=== PATIENT | male | born 1950 | race Caucasian/White ===

== ENCOUNTER 2021-08-29 02:16 | Outpatient (CLI) | payer OTHER, SELFPAY ==
[2021-08-29 10:58] LABS: Source Nasal/Nares
[2021-08-29 15:09] LABS: COVID-19 PCR Negative (Negative)
== END 2021-08-29 02:17 | disposition home or self-care (01) ==
LOC: LBO 02:16
PROVIDERS: Visit Provider Student in an Organized Health Care Education/Training Program
DX: Z20.822 Contact with and (suspected) exposure to COVID-19 (principal); Z01.818 Encounter for other preprocedural examination
CPT/HCPCS: 87635

== ENCOUNTER 2021-08-31 06:20 | Day surgery (SDC) | payer OTHER, SELFPAY ==
[2021-08-31 06:41] VITALS: BP 122/77; PULSE 58; RESP 18; TEMP 36.6; O2SAT 98
--- NOTE | 2021-08-31 07:23 | PDOC.DSDIS_ITS ---
Discharge Plan Disposition Patient Disposition: HOME Discharge Details Attending Provider: Paul Travis Primary Care Provider: [facility] Home Meds and New Rx's Prescriptions: New acetaminophen 500 mg tablet 1,000 mg PO Q8H PRN (Reason: pain) Qty: 60 3RF ibuprofen 600 mg tablet 600 mg PO TID PRN (Reason: pain) Qty: 30 3RF Continued warfarin 5 mg tablet 5 mg PO DAILY 0RF Discharge Instructions Additional Instructions: You may use Ibuprofen for pain relief in the first few days but regular use shou ld be avoided with Coumadin. Stand Alone Forms: Thaddeus Castillo Finger Release Activity:: Elevate Remove Dressings/Wound Care:: 48 hours Shower/Bathe:: 48 hours Diet:: As Tolerated Discharge Orders Discharge Orders: Discharge Order (Routine); Ordered 08/31/21 Ordered By: Paul Travis DS: Diagnosis Discharge Diagnosis (1) Trigger ring finger of right hand: Status: Acute (2) Trigger ring finger of left hand: Status: Acute
[2021-08-31 07:27] LABS: INR 1.2 (0.9-1.1); Prothrombin Time 11.6 sec (9.3-11.0)
[2021-08-31] MEDS: Sodium Bicarbonate 50 MEQ/50 ML VIAL (07:41)
--- NOTE | 2021-08-31 22:22 | ROE_ITS ---
Date of service: 08/31/21 Time of Service: 07:50 Operative Note Operative Note DATE OF PROCEDURE: 08/31/21 PRE-OP DIAGNOSIS: Bilateral Ring Finger Trigger Fingers POST-OP DIAGNOSIS: same PROCEDURE: Trigger Finger Release - Bilateral Ring Finger SURGEON: Paul Travis Refer to Anesthesia Record ESTIMATED BLOOD LOSS: 5 PATHOLOGY: none sent COMPLICATIONS: None Patient was transported to: same day Patient's condition: stable Indications: I have seen Jordy in clinic for symptoms of a trigger finger of both ring fingers. The catching, clicking, locking, and pain limited function. The diagnosis of trigger finger was evident. The symptoms had not responded to conservative measures. I discussed trigger finger release with the patient. I reviewed the risks of the procedure to include, but not limited to, bleeding, infection, pain, stiffness, incomplete release, damage to nerves or vessels, continued catching, recurrence. Despite these risks, the patient elected to proceed. Findings: There was a tightened A1 rica which was released. The flexor tendons were inspected and the patient was able to move the finger without any catching, clicking, or locking. This was performed on both ring fingers. Procedure Description: Jordy was greeted in the preoperative holding area where the correct side was identified and marked. The consent was reviewed with the patient and signed. All questions were answered. He was taken back to the operating room. The patient was placed into the supine position on the operating room table with the left arm on an arm board. All bony prominences were well padded. No prophylactic antibiotics were administered since this was a clean, elective hand surgical case. The left arm was then prepped with Chloraprep and draped in a standard fashion with stockinette and extremity drape. A timeout to confirm correct identity, side and site, procedure, allergies, anesthesia, and medical concerns was performed. The surgical site was marked as a longitudinal incision directly over the A1 rica of the ring finger. This was confirmed with palpation during finger flexion. This area, overlying the metacarpal head, was then anesthetized with 1% Lidocaine. The patient tolerated this well and once the anesthetic had se tup, the procedure began. A longitudinal incision was made through skin only, approximately 1cm. The deep tissues were dissected bluntly. Once the A1 rica and flexor tendons were identified the soft tissue including neurovascular structures were retracted medially and laterally. There were no crossing structures over the A1 rica. The proximal edge of the rica was identified and the rica was incised with tenotomy scissors. There was a release of the tendons once this was fully released. The tendons were then removed from the wound and inspected. Excess synovium was resected. The tendons were then returned and the patient was asked to move the finger into deep flexion and back to extension. There was no recreation of the pre-operative symptoms. The hand was then once more inspected for any A0 rica or area of possible constriction. The wound was then irrigated and the skin was closed with a 4-0 Nylon. This was dressed with gauze and a Conform dressing. While keeping the back table sterile, the patient was turned with the stretcher and the right arm was placed onto a hand table. The right arm was prepped and draped in a standard fashion with stockinette and extremity drape. The surgical site was marked as a longitudinal incision directly over the A1 rica of the ring finger. This was confirmed with palpation during finger flexion. This area, overlying the metacarpal head, was then anesthetized with 1% Lidocaine. The patient tolerated this well and once the anesthetic had setup, the procedure began. A longitudinal incision was made through skin only, approximately 1cm. The deep tissues were dissected bluntly. Once the A1 rica and flexor tendons were identified the soft tissue including neurovascular structures were retracted medially and laterally. There were no crossing structures over the A1 rica. The proximal edge of the rica was identified and the rica was incised with tenotomy scissors. There was a release of the tendons once this was fully released. The tendons were then removed from the wound and inspected. Excess synovium was resected. The tendons were then returned and the patient was asked to move the finger into deep flexion and back to extension. There was no recreation of the pre-operative symptoms. The hand was then once more inspected for any A0 rica or area of possible constriction. The wound was then irrigated and the skin was closed with a 4-0 Nylon. This was dressed with gauze and a Conform dressing. The patient tolerated the procedure well and was returned to the Same Day Surgery area in a stable condition suffering no known complication.
== END 2021-08-31 08:20 | disposition home or self-care (01) ==
PROVIDERS: Visit Provider Student in an Organized Health Care Education/Training Program
PROC: (CPT 26055; principal; 2021-08-31 07:30)
DX: M65.341 Trigger finger, right ring finger (principal); M65.342 Trigger finger, left ring finger; Z79.01 Long term (current) use of anticoagulants
CPT/HCPCS: 26055; 36415; 85610

== ENCOUNTER 2022-01-03 11:30 | Outpatient (CLI) | payer OTHER, SELFPAY ==
--- NOTE | 2022-01-03 08:15 | DI.RAD_ITS ---
Exam(s) XR SHOULDER RT COMPLETE 2+V EXAM: XR SHOULDER RT COMPLETE 2+V CLINICAL HISTORY: RIGHT SHOULDER PAIN. TECHNIQUE: 2D digital imaging was performed of the right shoulder. Two images were obtained. AP an d axillary views were obtained. COMPARISON: No exams were available for comparison FINDINGS: BONES: No acute fracture is present. No bony destructive lesion is seen. JOINTS: No dislocation present. Moderate degenerative changes are seen at the glenohumeral joint with joint space narrowing, subchondral sclerosis and periarticular spurring. Moderate degenerative armstrong ges are seen at the acromioclavicular joint. SOFT TISSUE: Normal. IMPRESSION: Degenerative changes of the right shoulder. DATA REPOSITORY: RADIATION DOSE DELIVERED:
== END 2022-01-03 11:31 | disposition home or self-care (01) ==
LOC: DIORS 11:31
PROVIDERS: Visit Provider Student in an Organized Health Care Education/Training Program
DX: M19.011 Primary osteoarthritis, right shoulder (principal)
CPT/HCPCS: 73030

== ENCOUNTER → 2022-01-23 00:14 | Outpatient (CLI) | payer OTHER, SELFPAY ==
--- NOTE | 2022-01-23 07:45 | DI.RAD_ITS ---
Exam(s) XR CHEST 2V PA LATERAL EXAM: XR CHEST 2V PA LATERAL CLINICAL HISTORY: preop,oa rt shoulder, m19.011 TECHNIQUE: 2D digital imaging was performed. COMPARISON: No exams were available for comparison FINDINGS: MEDIASTINUM: Normal. HEART: Normal. PULMONARY VASCULATURE: Normal. LUNGS: Clear. PLEURAL SPACE: No pleural effusion or pneumothorax. BONE:Degenerative changes IMPRESSION: No acute abnormality. DATA REPOSITORY: RADIATION DOSE DELIVERED:
== END ==
PROVIDERS: Visit Provider Student in an Organized Health Care Education/Training Program
DX: M19.011 Primary osteoarthritis, right shoulder (principal); Z01.818 Encounter for other preprocedural examination
CPT/HCPCS: 71046

== ENCOUNTER 2022-01-23 02:30 | Outpatient (CLI) | payer OTHER, SELFPAY ==
[2022-01-23 14:34] LABS: HCT 40.6 % (40.0-50.0); HGB 13.9 g/dL (13.5-17.5); MCH 30.2 pg (27.0-33.0); MCHC 34.2 % (32.0-36.0); MCV 88 fL (80-95); MPV 10.4 fL (8.0-11.0); Platelet Count 170 10^3/uL (130-400); RBC 4.61 10^6/uL (4.36-5.78); RDW 12.9 % (11.8-14.1); WBC 5.59 10^3/uL (4.4-10.8)
[2022-01-23 15:04] LABS: INR 3.7 (0.9-1.1); PTT Activated 41.1 sec (21.0-27.5); Prothrombin Time 34.4 sec (9.3-11.0)
[2022-01-23 16:03] LABS: Anion Gap 7.9 mmol/L (3-11); BUN 21 mg/dL (7-18); CO2 28.1 mmol/L (21.0-32.0); CREATININE 0.8 mg/dL (0.70-1.30); Calcium 8.6 mg/dL (8.5-10.1); Chloride 104 mmol/L (98-107); Glucose 93 mg/dL (74-106); Sodium 140 mmol/L (136-145)
== END 2022-01-23 02:31 | disposition home or self-care (01) ==
LOC: LBO 02:30
PROVIDERS: Visit Provider Student in an Organized Health Care Education/Training Program
DX: I82.402 Acute embolism and thrombosis of unspecified deep veins of left lower extremity; M19.011 Primary osteoarthritis, right shoulder; M25.511 Pain in right shoulder; Z79.01 Long term (current) use of anticoagulants; Z01.818 Encounter for other preprocedural examination; Z01.812 Encounter for preprocedural laboratory examination
CPT/HCPCS: 36415; 80048; 85027; 85610; 85730

== ENCOUNTER 2022-01-23 02:40 | Outpatient (CLI) | payer OTHER, SELFPAY ==
--- NOTE | 2022-01-23 14:00 | RT.EKG_ITS ---
APPROVED REPORT Exam: Resting ECG Reason for Exam: preop Patient Location: O HR:56 bpm ECG Measurements Heart Rate 56 AXIS MT 214 P 72 QRSd 95 QRS 21 QT 417 T 40 QTc 403 Conclusion Sinus rhythm...normal P axis, V-rate 50- 99 Borderline prolonged MT interval...MT >212, V-rate 50- 90
== END 2022-01-23 02:41 | disposition home or self-care (01) ==
LOC: RT 02:41
PROVIDERS: Visit Provider Student in an Organized Health Care Education/Training Program
DX: M19.011 Primary osteoarthritis, right shoulder; Z01.810 Encounter for preprocedural cardiovascular examination
CPT/HCPCS: 93005; 93010

== ENCOUNTER 2022-01-31 03:21 | Outpatient (CLI) | payer OTHER, SELFPAY ==
[2022-01-31 12:09] LABS: Source Nasal/Nares
[2022-01-31 16:22] LABS: COVID-19 PCR Negative (Negative)
== END 2022-01-31 03:22 | disposition home or self-care (01) ==
LOC: LBO 03:21
PROVIDERS: Visit Provider Student in an Organized Health Care Education/Training Program
DX: Z20.822 Contact with and (suspected) exposure to COVID-19 (principal); Z01.818 Encounter for other preprocedural examination
CPT/HCPCS: 87635

== ENCOUNTER 2022-02-02 05:59 | Day surgery (SDC) | payer OTHER, SELFPAY ==
[2022-02-02] VITALS (10 sets, daily range): BP systolic 109–126; BP diastolic 61–84; PULSE 50–62; RESP 14–22; TEMP 36.3–36.7; O2SAT 94–98; BMI 24.6
--- NOTE | 2022-02-02 06:09 | ANES.PREOP_ITS ---
General Info Date of Service Date Performed: 02/02/22 Height: 6 ft 1 in Weight: 84.822 kg Body Mass Index (BMI): 24.6 Surgical Procedure: Operation Date: 02/02/22 07:40 Proposed Procedure Side Surgeon p Reverse Shoulder Total Arthroplasty Right Grady Resendiz MD Meds Allergies and Home Medications Allergies Allergy/AdvReac Type Severity Reaction Status Date / Time No Known Allergies Allergy Verified 02/02/22 06:30 Home Medication Medication Instructions Recorded warfarin 5 mg tablet 5 mg PO DAILY 01/31/21 acetaminophen 500 mg tablet 1,000 mg PO Q8H PRN pain #60 tabs 08/31/21 naproxen 250 mg tablet 250 - 500 mg PO BID PRN #20 tabs 02/02/22 oxycodone 5 mg tablet 5 - 10 mg PO Q4H PRN moderate to 02/02/22 severe pain #18 tabs PFSH Active Problems Active Problems: Problem Status Onset Code Trigger ring finger of right hand M65.341 Trigger ring finger of left hand M65.342 Adjustment disorder with disturbance of conduct F43.24 Prediabetes R73.03 Osteoarthritis of right shoulder M19.011 Tendonitis of long head of biceps brachii of right shoulder M75.21 Medical History Medical History Colonic polyp Compartment syndrome of left lower extremity Deep vein thrombosis (DVT) of left lower extremity Surgical History Surgical History (Updated 02/02/22 @ 06:35 by Courtney Elliott RN) H/O fasciotomy History of back surgery back injections/nerve blocks Hx of colonoscopy Hx of knee surgery Tobacco Smoking/Tobacco Use Status: Former Tobacco Use Alcohol Alcohol Intake: current Alcohol intake frequency: 3 or more drinks per day Alcohol type: beer Substance Use Substance use: Daily Substance use type: marijuana Vital Signs and Lab Results Lab Results Blood Type / Crossmatch: No Data to Display Complete Blood Count: White Blood Count 5.59 10^3/uL (4.4-10.8) 01/23/22 14: Red Blood Count 4.61 10^6/uL (4.36-5.78) 01/23/22 14:27 Hemoglobin 13.9 g/dL (13.5-17.5) 01/23/22 14:27 Hematocrit 40.6 % (40.0-50.0) 01/23/22 14:27 Platelet Count 170 10^3/uL (130-400) 01/23/22 14:27 Complete Metabolic Panel: Sodium Level 140 mmol/L (136-145) 01/23/22 14:27 Potassium Level 4.0 mmol/L (3.5-5.1) 01/23/22 14:27 Chloride Level 104 mmol/L (98-107) 01/23/22 14:27 Carbon Dioxide Level 28.1 mmol/L (21.0-32.0) 01/23/22 14:27 Blood Urea Nitrogen 21 mg/dL (7-18) H 01/23/22 14:27 Creatinine 0.8 mg/dL (0.70-1.30) 01/23/22 14:27 Estimated GFR/1.73 m2 >= 60.00 (mL/min/1.73m2) 01/23/22 14:27 Calcium Level 8.6 mg/dL (8.5-10.1) 01/23/22 14:27 Glucose Level 93 mg/dL (74-106) 01/23/22 14:27 Liver Function Panel: No Data to Display Coagulation Panel: INR International Normalized Ratio 1.1 (0.9-1.1) 02/02/22 06:4 0 Prothrombin Time 10.8 sec (9.3-11.0) 02/02/22 06:40 Activated Partial Thromboplast Time 41.1 sec (21.0-27.5) H 01/23/22 14:27 Cardiac Panel: No Data to Display Arterial Blood Gas: No Data to Display Venous Blood Gas: No Data to Display Pancreas Panel: No Data to Display Thyroid Panel: No Data to Display Infectious Disease: Coronavirus (COVID-19)(PCR) Negative (Negative) 01/31/22 11:35 Coronavirus 2019 Source Nasal/Nares 01/31/22 11:35 Blood Cultures: No Data to Display Toxicology Panel: No Data to Display Imaging and Studies Imaging and Studies Study information below may be from another EMR and interpreted by another provider. Please see original notes in EMR for more complete details. EKG Summary: 01/23/22: sinus. Anesthesia Assessment and Plan Anesthesia History Personal History: No History of Anesthesia Complications Family History: No Family History of Anesthesia Complications Exercise Tolerance Exercise Tolerance: Metabolic Equivalents>4 Pertinent Negatives Pertinent Negatives: No Symptoms of GERD, No Major Cardiovascular Symptoms or Complaints, No Major Pulmonary Symptoms or Complaints and No History of CVA/TIA Cardiac & Pulmonary Exam Cardiac Exam: Normal S1/S2 Heart Sounds Pulmonary Exam: Clear Bilateral Breath Sounds Implantable Cardiac Device Does patient have a Pacemaker or an ICD?: No Airway Exam Known Difficult Airway: No Mallampati Class: 3 Mouth Opening: Normal (> 3cm) Thyromental Distance: Greater than 3 cm Neck Range of Motion: Full ROM Neck Circumference: Normal Teeth Condition: Normal Dentition and Generalized Poor Dentition ASA Classification ASA Score: ASA 3 Emergency Case?: No NPO Status NPO Status: NPO Clears >2 hours, Solids >8 hours Anesthesia Plan Resuscitation Status: Full Code Anesthesia Technique: General Anesthesia Airway Planned: Endotracheal Tube Pain Management: Surgeon and patient request nerve block Monitors Used: Standard Monitors and Arterial Line (+/-) Preoperative Comments:: 71 yo male for right reverse total shoulder Sig PMHx: DVT (warfarin, last dose 01/28/22, INR 1.1 today), HTN, daily Et [place]/cannabis, LE compartment syndrome with fasciotomy 2014, former smoker (quit 40 years ago) Plan: MELANIE brachial plexus block, +/- arterial line.
[2022-02-02 07:08] LABS: INR 1.1 (0.9-1.1); Prothrombin Time 10.8 sec (9.3-11.0)
[2022-02-02] MEDS: Lactated Ringers 1,000 ML 30 ML IV (07:09)
[2022-02-02] MEDS: ceFAZolin 2 GM/50 ML BAG IVPB (07:40)
--- NOTE | 2022-02-02 08:23 | W.ANESNERVE ---
Nerve Block Single Injection Procedure Date and Time Date Performed: 02/02/22 Procedure Start: 07:15 Location Where Procedure Performed Procedure Location: Day Surgery Unit Reason Performed: Postoperative Analgesia Requesting Provider: Grady Resendiz Timeout Performed Timeout Performed: Yes Monitoring Used ECG, Blood Pressure, SpO2 and See EMR for corresponding vital signs Sterility Sterility: Hand Hygiene, Surgical Cap, Surgical Mask, Sterile Gloves and Chlorhexidine Sedation Given During Procedure Sedation Given (Indicate Dose Given): Versed IV Dose:: 2mg Patient Mental Status Patient Mental Status: Sedate with meaningful communication Nerve Block 1st Nerve Block: Laterality: Right Block Type: Interscalene Needle / Catheter Used: 100mm SonoPlex II Local Anesthetic Bolus (Indicate Dose Given): Lidocaine used for local infiltration of skin, Bupivacaine 0.5% Dose:: 15 mL and Exparel Dose:: 10 mL Additives (Indicate Dose Given): None Ultrasound: Sterile probe cover and gel used Ultrasound Image Saved?: Yes Nerve Stimulator: Not Used Paresthesia: None Procedure Tolerated: No Complications Procedure Outcome: Successful Performed By: Ronel Ahumada Supervised By: Thad Del Cid
[2022-02-02] MEDS: Bupivacaine 0.25% Pres-Free 30 ML VIAL (08:35)
--- NOTE | 2022-02-02 11:41 | DI.RAD_ITS ---
Exam(s) XR SHOULDER RT COMPLETE 2+V EXAM: XR SHOULDER RT COMPLETE 2+V CLINICAL HISTORY: Portable in PACU postop. TECHNIQUE: 2D digital imaging was performed. Two images were obtained. AP views were obtained. COMPARISON: CR XR SHOULDER RT COMPLETE 2+V from 01/03/2022 FINDINGS: BONES: The patient is now status post right total reverse shoulder replacement. The orthopedic hardw are is in good position. The bones are intact. JOINTS: Degenerative changes are seen at the acromioclavicular joint. SOFT TISSUE: Postsurgical changes are seen in the soft tissues. IMPRESSION: Status post right shoulder replacement. DATA REPOSITORY: RADIATION DOSE DELIVERED:
--- NOTE | 2022-02-02 12:08 | W.ANESPOSTOP ---
Postoperative Evaluation Date, Time and Location Date Performed: 02/02/22 Time Performed: 12:09 Patient Location: Day Surgery Unit Vital Signs Most Recent Imported Vital Signs: Most Recent Vital Signs Temp Pulse Resp BP Pulse Ox 36.3 C L 53 L 16 118/84 95 02/02/22 11:57 02/02/22 11:57 02/02/22 11:57 02/02/22 11:57 02/02/22 11:57 Pain Score Most Recent Pain Score: Most Recent Pain Score Pain Level 0 02/02/22 11:57 Assessment Mental Status: Awake (Alert & Oriented to Patient Baseline) Airway and Respiratory Function: Patent airway with normal (patient baseline) respiratory exam Cardiovascular Function: Hemodynamically Stable Hydration Status: Adequately Hydrated Nausea & Vomiting: No Nausea or Vomiting Pain: Pain is tolerable per patient Peripheral Nerve Block: Regional nerve block not resolved at time of post operative discharge
[2022-02-02] MEDS: ceFAZolin 1 GM/50 ML BAG IVPB (13:13)
--- NOTE | 2022-02-02 13:55 | W.PM.DSUDISC ---
Discharge Plan Disposition Patient Disposition: HOME Condition: Stable Discharge Details Reason For Visit: Right shoulder surgery Attending Provider: Grady Reesndiz Primary Care Provider: [facility],[place] Home Meds and New Rx's Prescriptions: New naproxen 250 mg tablet 250 - 500 mg PO BID PRNQty: 20 0RF Rx Instructions: take with a meal oxycodone 5 mg tablet 5 - 10 mg PO Q4H MDD 30 mg PRN (Reason: moderate to severe pain) Qty: 18 0RF Continued warfarin 5 mg tablet 5 mg PO DAILY acetaminophen 500 mg tablet 1,000 mg PO Q8H PRN (Reason: pain) Qty: 60 3RF Discharge Instructions Additional Instructions: Surgery: Right reverse total shoulder arthroplasty with biceps tenodesis Activity: Do not lift anything heavier than a coffee. You should keep your arm at your side in a neutral position at all times except for gentle range of motion exercises, physical therapy, and essential activities. You should use the sling whenever you are out of the house. You may have to adjust the abduction pillow or remove it for comfort. At home it is best to remove the sling and rest the arm on a pillow at your side or support the operative side with your other hand. A physical therapy prescription will be sent electronically to start in 2-3 weeks. Reverse TSA Protocol: Postoperative Weeks 0-6 ?Immobilization: Sling may be removed for therapeutic exercises, resting in bed or chair, and bathing ?Motion exercises: Pendulum exercises, elbow range- of-motion exercises, wrist [id number] exercises, and alarm installation technician strengthening ?Restrictions: No active internal rotation or backwards extension Postoperative Weeks 6-12 ?Immobilization: Sling discontinued ?Motion exercises: Shoulder passive range of motion, advancing to active-assisted range of motion, and finally active range of motion with a goal of forward flexion to 90? and external rotation of 20? ?Strengthening exercises: Light, resisted forward flexion, external rotation, and abduction limited to isometric exercises and therapy bands with concentric motions only. Continue alarm installation technician strengthening ?Restrictions: No resisted internal rotation or backwards extension. No scapular retraction exercises with therapy bands Postoperative Months 3-12 ?Motion exercises: Increase [id number] exercises to achieve full motion, with passive stretching at end ranges ?Strengthening: Begin resisted, internal rotation and backwards extension initially with isometric exercises advancing to light therapy bands and then weights. Advance other shoulder strengthening exercises to include the rotator cuff, deltoid, and scapular stabilizers. Advance to functional strengthening, including plyometric exercises and core strengthening. Prescriptions: Resume home warfarin dose tomorrow morning Naproxen 250 mg take 1-2 every 12 hours with a meal as needed for moderate pain and swelling: Okay to use while resuming warfarin over the next few days and carefully over the next couple weeks Oxycodone 5 mg take 1-2 every 4-6 hours as needed for severe pain You may use [id number] Tylenol (acetaminophen) as needed for mild to moderate pain. These pain medications may be taken all at once or in different combinations as needed. Also, recommend Colace (docusate) as a stool softener as surgery and pain medicine cause constipation. You may try [id number] diphenhydramine (Benadryl) 25-50 mg nightly as a sleep aid Dressings: Leave dressing in place until follow-up. Keep clean and dry at all times. No showers please. Follow-up: 10-[address] Resendiz Please call the office during business hours with any questions or concerns. Let us know right away if you develop any redness, drainage, fevers, chest pain, or trouble breathing. Do not drink alcohol or drive for at least 24 hours after anesthesia. Stand Alone Forms: Anesthesia Discharge Inst., Elvia.Nerve Block Instructions, Sudhir Saavedra ([facility]) Discharge Orders Discharge Orders: Discharge Order (Routine); Ordered 02/02/22 Ordered By: Grady Resendiz
--- NOTE | 2022-02-02 14:05 | ROE_ITS ---
Operative Note Operative Note DATE OF PROCEDURE: 02/02/22 PRE-OP DIAGNOSIS: Right: 1. End-stage glenohumeral arthritis 2. Long head of the biceps tendinopathy POST-OP DIAGNOSIS: same PROCEDURE: Right: 1. Reverse total shoulder arthroplasty, CPT # 54299 2. Open biceps tenodesis, CPT # 08992 The environmental emergencies assistant was medically required as this procedure involves retraction, protection of neurovascular structures, and manipulation of multiple instruments and implants at the same time, which cannot be done without a skilled environmental emergencies assistant. SURGEON: Grady Resendiz BATTERY CHARGER: Corrie Beard ANESTHESIA TYPE: Local By Surgeon, General LMA/ETT and Primary Nerve Block Refer to Anesthesia Record ESTIMATED BLOOD LOSS: 75 COMPLICATIONS: None Patient was transported to: PACU Patient's condition: stable Implants: [employer] modular glenoid system baseplate 24 mm, 10 degree full augment [employer] modular glenoid system central post 25 mm [employer] modular glenoid system peripheral locking screws 40 mm inferior, 36 mm superior, 24 mm posterior, 20 mm anterior [employer] modular glenoid system glenosphere 42 +4 mm lateralized [employer] humeral stem 135 degrees size 7 [employer] suture cup size 39 neutral offset [employer] humeral insert size 39 +6 / 42 mm combo Indications: Please see complete medical record for details. Findings: Significant long head biceps tenosynovitis and glenohumeral cartilage loss. Largely intact rotator cuff. Procedure Description: In the operating room, general anesthesia was induced. The patient was positioned beachchair on the operating room table. All bony prominences were well-padded. Preoperative antibiotics were administered. The shoulder was prepped and draped in the usual sterile fashion for shoulder arthroplasty. The correct patient, procedure, and side of the procedure were all verified prior to incision. The deltopectoral approach was taken to the anterior shoulder. Care was taken to bluntly dissect the interval between the deltoid and pectoralis major muscles and to identify the cephalic vein within its fat stripe. The the vein was mobilized laterally. Subdeltoid space and conjoined tendon were freed of adhesions. The long head of the biceps tendon was identified just lateral to the lesser tuberosity. The uppermost margin of the pectoralis major tendon was released from the proximal humerus. The long head of the biceps tendon was tenodesed in situ using SutureTape in a [id number] fashion securing it superior margin the pectoralis major tendon. The biceps tendon was amputated and followed proximally to identify the rotator interval. A subscapularis peel was performed taking care to release the entire tendon in a full-thickness fashion from superior to inferior and lateral to medial while bringing the arm gradually into external rotation. Care was taken to avoid the axillary nerve by only working on the bone inferiorly and medially. The subscapularis was tagged using SutureTape in a Syed-Sheldon fashion and traction used confirm appropriate mobilization of the subscapularis tendon after gentle blunt dissection was used to free up the space anterior and posterior to it. The supraspinatus and infraspinatus were identified and preserved. Appropriate coagulation was achieved especially interiorly. The anatomic neck was cut using an oscillating saw with the humeral head bone brought back table in case there was a need for future bone grafting. The proximal humeral protection plate was used to provisionally confirm suture cup size. Attention was then turned to the glenoid and retractors were placed and a circumferential release performed using the long head of the biceps remnant to remove soft tissue about the glenoid rim. Care was taken inferiorly to work on bone only between 5 and 7:00 o'clock and bluntly elevate tissues inferiorly. The VIP guide was placed on the glenoid and used to confirm placement and trajectory of the central guidepin. The guidepin was inserted and advanced just through the far cortex ensuring adequate central fixation length. Depth gauge was used to confirm length. The glenosphere sizer was used to confirm positioning and glenosphere size. The 10 degree eccentric backside of the baseplate reamer was used. There was appropriate eccentric reaming. The 25 mm central post drill was used. The baseplate was impacted and fully compressed onto the glenoid surface. The locking guide was then used to drill and place appropriately lengthed inferior, superior, anterior, and posterior screws. The [id number] reamer was used to confirm adequate peripheral reaming. The glenosphere was applied with the technical service representative and then impacted to engage the Gonsales taper. It was then locked with appropriate countersinking of the setscrew. The glenosphere was inspected and found to have good fit, appropriate positioning, and no soft tissue or bony impingement. Attention was then turned back to the proximal humerus, which was delivered from the wound and maintained in external rotation. Reamers were started appropriately posterior to the bicipital groove taking care to maintain in line approach with the humeral canal. Sequential reaming was done from size 5 up to size 7. Next, the broaches were sequentially used to open the proximal humerus starting with a size 5 and going up to size 7 and sunk to the appropriate depth while maintaining approximately 30 degrees retroversion. There was good metaphyseal fit and rotational control of the proximal humerus with this size. The neutral offset guide was used to ream for the undersized suture cup. The humeral trial cup was connected. Trialing was commenced with +3 mm liner. The shoulder was reduced and taken through range of motion. There was pretty good s tability and appropriate tension on the deltoid and conjoined tension. The trial components were removed from the proximal humerus. The wound was copiously irrigated with normal saline. A 2 mm drill was used to drill 2 drill holes in the bicipital groove for later subscapularis repair. The the proximal humeral stem and suture cup were assembled and brought over the proximal humerus. Suture tapes were placed superiorly inferiorly at the medial and lateral aspect of the suture cup. The lateral tapes were brought out the drill holes. A small amount of vancomycin powder was distributed in the proximal humerus. The humeral component and suture cup were impacted into place. The trial +6mm liner was added, and the shoulder was reduced and range of motion, stability, and tension confirmed to be appropriate. The final liner was then connected, and range of motion, stability, and tension confirmed. The shoulder was copiously irrigated with Betadine and normal saline. Vancomycin powder was distributed deeply about the shoulder and through subcutaneous tissues. The arm was placed in about 30 degrees of external rotation. The subscapularis was reduced and repaired using the sukhjinder renae StureTape in a speed bridge type configuration. The arm was taken into more external rotation without any displacement of the subscapularis repair. The lateral rotator interval was closed using [id number]-gv-[id number] suture tape between the intact anterior supraspinatus and upper margin subscapularis over the proximal humerus. The deltopectoral interval was well approximated. Subcutaneous tissue was irrigated then closed using 2-0 Monocryl in a buried interrupted fashion. Skin was closed using 3-0 Monocryl in a buried subcuticular fashion. Skin glue was applied to the incision. A silver impr egnated bandage was placed over the incision. The extremity was placed into a shoulder immobilizer. The patient awoke from anesthesia without complication and was taken to the recovery room in stable condition.
== END 2022-02-02 14:25 | disposition home or self-care (01) ==
LOC: SUR 07:20 → DSU 13:52 → SUR 02-13 09:34
PROVIDERS: Visit Provider Student in an Organized Health Care Education/Training Program
PROC: (CPT 23472; principal; 2022-02-02 07:30)
DX: M19.011 Primary osteoarthritis, right shoulder (principal); M75.21 Bicipital tendinitis, right shoulder
CPT/HCPCS: 23472; 23430; 36415; 76942; 73030; 85610; C1781; J0690; J1100; J1885; J2250; J2405; J2704

== ENCOUNTER 2022-02-15 14:44 | Outpatient (CLI) | payer OTHER, SELFPAY ==
--- NOTE | 2022-02-15 14:30 | DI.RAD_ITS ---
Exam(s) XR SHOULDER RT COMPLETE 2+V EXAM: XR SHOULDER RT COMPLETE 2+V CLINICAL HISTORY: right shoulder pain TECHNIQUE: COMPARISON: CR XR SHOULDER RT COMPLETE 2+V from 02/02/2022 FINDINGS: Two views were obtained and show a reverse shoulder prosthesis in position. Components appear well s eated. No other significant bony abnormality seen. IMPRESSION: RADIATION DOSE DELIVERED: Total DLP
== END 2022-02-15 14:45 | disposition home or self-care (01) ==
LOC: DIORS 14:44
PROVIDERS: Visit Provider Student in an Organized Health Care Education/Training Program
DX: M25.511 Pain in right shoulder (principal); Z96.611 Presence of right artificial shoulder joint
CPT/HCPCS: 73030

== ENCOUNTER 2023-02-07 10:28 | Outpatient (CLI) | payer OTHER, SELFPAY ==
--- NOTE | 2023-02-07 08:00 | DI.RAD_ITS ---
Exam(s) XR SHOULDER RT COMPLETE 2+V EXAM: XR SHOULDER RT COMPLETE 2+V CLINICAL HISTORY: right shoulder f/u. TECHNIQUE: 2D digital imaging was performed. COMPARISON: CR XR SHOULDER RT COMPLETE 2+V from 02/15/2022 FINDINGS: 3 views There is stable appearance of the right shoulder reverse prosthesis. No fracture or loosening eviden t. No radiographic evidence of osteomyelitis. IMPRESSION: Satisfactory stable appearance. DATA REPOSITORY: RADIATION DOSE DELIVERED:
== END 2023-02-07 10:29 | disposition home or self-care (01) ==
LOC: DIORS 10:29
PROVIDERS: Visit Provider Student in an Organized Health Care Education/Training Program
DX: Z47.31 Aftercare following explantation of shoulder joint prosthesis
CPT/HCPCS: 73030